=== PATIENT | female | born 1995 | race Caucasian/White ===

== ENCOUNTER 2020-09-20 10:26 | Emergency (ER) | payer SELFPAY ==
[~2020-09-20] VITALS: Ht 162.6 cm; Wt 64.0 kg
[2020-09-20 10:29] VITALS: BP 136/78
== END 2020-09-20 10:42 | disposition left against medical advice (07) ==
LOC: ER 10:26
DX: Z00.00 Encounter for general adult medical examination without abnormal findings (principal); F41.9 Anxiety disorder, unspecified
CPT/HCPCS: 99283

== ENCOUNTER 2021-09-13 09:16 | Emergency (ER) | payer OTHER ==
[~2021-09-13] VITALS: Ht 167.6 cm; Wt 68.0 kg
[2021-09-13 10:27] LABS: CLARITY URINE CLEAR (CLEAR); COLOR URINE YELLOW (YELLOW); KETONES URINE NEGATIVE (NEGATIVE); LEUKOCYTE ESTERASE URINE 1+ (NEGATIVE); NITRITE URINE NEGATIVE (NEGATIVE); OCCULT BLOOD URINE NEGATIVE (NEGATIVE); PH URINE >=9.0 (4.5-8.0); PROTEIN URINE NEGATIVE (NEGATIVE); SPECIFIC GRAVITY URINE 1.013 (1.005-1.030); UROBILINOGEN URINE 0.2 E.U./dL (0.2-1.0)
[2021-09-13 12:18] VITALS: BP 108/72
[2021-09-13] MEDS: ACETAMINOPHEN 325MG TABLET PO ONE (12:18)
[2021-09-13] MEDS: IBUPROFEN 400MG TABLET PO ONE (12:18)
== END 2021-09-13 14:14 | disposition home or self-care (01) ==
LOC: ER 09:16
DX: B34.9 Viral infection, unspecified (principal); Z20.822 Contact with and (suspected) exposure to COVID-19; Z98.890 Other specified postprocedural states
CPT/HCPCS: 81003; 81025; 87426; 99283; C9803